=== PATIENT | female | born 1980 | race Caucasian/White ===

== ENCOUNTER 2023-01-26 17:27 | Emergency (ER) | payer OTHER ==
[2023-01-26] MEDS ORDERED: METOCLOPRAMIDE 5 MG/ML 2 ML VIAL IVP STA (20:29)
[2023-01-26] MEDS ORDERED: KETOROLAC 15 MG/ML 1 ML VIAL IVP STA (20:29)
[2023-01-26] MEDS ORDERED: DEXAMETHASONE SOD PHOSPHATE 10 MG/ML 1 ML VIAL IVP STA (20:29)
[2023-01-26] MEDS ORDERED: diphenhydrAMINE 50 MG/ML 1 ML VIAL IVP STA (20:29)
[2023-01-26] MEDS ORDERED: SODIUM CHLORIDE 0.9% 1,000 ML IV STA (20:29)
--- NOTE | 2023-01-26 20:54 | CT ---
EXAMINATION TYPE: CT brain wo con DATE OF EXAM: 01/26/2023 COMPARISON: None HISTORY: headache CT DLP: 1173.[address] of the brain was performed. The ventricles, basal cisterns and sulci overlying the cerebral convexities demonstrate a normal appe arance. There is no evidence for intracranial hemorrhage or sulcal effacement. No mass effects are seen. Osseous calvarium is intact. If symptoms persist consider MRI as clinically warranted. IMPRESSION: 1. No acute intracranial process is seen at this time.
[2023-01-26 21:08] LABS: Basophils # (A) 0.1 k/uL (0-0.2); Basophils % (A) 1 %; Eosinophils # (A) 0.2 k/uL (0-0.7); Eosinophils % (A) 2 %; HCT 33.7 % (34.0-46.0); HGB 10.8 gm/dL (11.4-16.0); Hypochromasia Moderate; Lymphocytes # (A) 2.9 k/uL (1.0-4.8); Lymphocytes % (A) 29 %; MCH 25.3 pg (25.0-35.0); MCHC 32.1 g/dL (31.0-37.0); MCV 78.7 fL (80.0-100.0); Mean Platelet Volume 7.4; Monocytes # (A) 0.6 k/uL (0-1.0); Monocytes % (A) 6 %; Neutrophils % (A) 61 %; Platelet Count 291 k/uL (150-450); RBC 4.28 m/uL (3.80-5.40); RDW 14.8 % (11.5-15.5); WBC 9.8 k/uL (3.8-10.6)
[2023-01-26 21:22] LABS: ALT 12 U/L (4-34); AST 18 U/L (14-36); African American GFR (CKD) >90 (>60 ml/min/1.73 sqM); Albumin 3.8 g/dL (3.5-5.0); Alkaline Phosphatase 73 U/L (38-126); Anion Gap 7 mmol/L; Blood Urea Nitrogen 12 mg/dL (7-17); Calcium 8.8 mg/dL (8.4-10.2); Carbon Dioxide 21 mmol/L (22-30); Chloride 107 mmol/L (98-107); Glucose 89 mg/dL (74-99); Non-African American GFR(CKD) 79 (>60 ml/min/1.73 sqM); Potassium 4.5 mmol/L (3.5-5.1); Sodium 135 mmol/L (137-145); Total Bilirubin 0.2 mg/dL (0.2-1.3); Total Protein 6.6 g/dL (6.3-8.2)
[2023-01-26 21:54] VITALS: BP 124/87; PULSE 71; RESP 17; TEMP 98.2
[2023-01-26 21:56] LABS: Erythrocyte Sedimentation Rate 12 mm/hr (0-20)
--- NOTE | 2023-01-26 21:56 | ED ---
Headache HPI - General Chief Complaint: Headache Stated Complaint: Head pressure Time Seen by Provider: 01/26/23 20:16 Mode of arrival: ambulatory Limitations: no limitations - History of Present Illness Initial Comments: Patient is a 42-year-old female presents to the emergency department for headache. This started on . Patient reports consistent pressure on the top right of her head which is worse with coughing, sneezing, bending down. States the headache is severe. She denies head injury. Denies fever, chills, nausea, vomiting, visual symptoms. Denies numbness and tingling. Denies weakness. She denies chest pain and shortness of breath. Denies history of migraines. - Related Data Previous Rx's Medication Instructions Recorded Ibuprofen [Motrin] 800 mg PO Q8HR PRN #30 tab 01/26/23 Allergies Allergy/AdvReac Type Severity Reaction Status Date / Time latex Allergy Rash/Hives Verified 01/26/23 17:33 Review of Systems ROS Statement: Those systems with pertinent positive or pertinent negative responses have been documented in the HPI. ROS Other: All systems not noted in ROS Statement are negative. Past Medical History Past Medical History: Asthma, Hypertension History of Any Multi-Drug Resistant Organisms: None Reported Past Surgical History: No Surgical Hx Reported Past Psychological History: No Psychological Hx Reported Smoking Status: Current every day smoker Past Alcohol Use History: Occasional Past Drug Use History: None Reported General Exam Limitations: no limitations General appearance: alert, in no apparent distress Head exam: Present: atraumatic, normocephalic, normal inspection Eye exam: Present: normal appearance, PERRL, EOMI. Absent: scleral icterus, conjunctival injection, periorbital swelling Respiratory exam: Present: normal lung sounds bilaterally. Absent: respiratory distress, wheezes, rales, rhonchi, stridor Cardiovascular Exam: Present: regular rate, normal rhythm, normal heart sounds. Absent: systolic murmur, diastolic murmur, rubs, gallop, clicks Neurological exam: Present: alert, oriented X3, CN II-XII intact Expanded Cranial nerves: EOM's Intact: Normal, Facial Sensation: Normal, Facial Palsy with Forehead Movement: Normal, Facial Palsy without Forehead Movement: Normal Sensory exam: Upper Extremity Light Touch: Normal, Lower Extremity Light Touch: Normal Motor strength exam: RUE: 5, LUE: 5, RLE: 5, LLE: 5 Psychiatric exam: Present: normal affect, normal mood Skin exam: Present: warm, dry, intact, normal color. Absent: rash Course Vital Signs 01/26/23 01/26/23 01/26/23 17:31 21:02 21:54 Temperature 98.1 F 98.5 F 98.2 F Pulse Rate 90 74 71 Respiratory 20 16 17 Rate Blood Pressure 125/74 121/81 124/87 O2 Sat by Pulse 99 97 96 Oximetry Medical Decision Making - Medical Decision Making Was pt. sent in by a medical professional or institution (, [facility], [employer], urgent care, hospital, or custodial...) When possible be specific @ -No Did you speak to anyone other than the patient for history (EMS, parent, family, police, friend...)? What history was obtained from this source @ -No Did you review nursing and triage notes (agree or disagree)? Why? @ -I reviewed and agree with nursing and triage notes Were old charts reviewed (outside hosp., previous admission, EMS record, old EKG, old radiological studies, urgent care reports/EKG's, custodial records)? Report findings @ -No old charts were reviewed Differential Diagnosis (chest pain, altered mental status, abdominal pain women, abdominal pain men, vaginal bleeding, weakness, fever, dyspnea, syncope, headache, dizziness, GI bleed, back pain, seizure, CVA, palpatations, mental health)? @ -Differential Headache: Migraine, tension, cluster, carbon monoxide, central venous thrombosis, pension karma temporal arteritis, acute closure glaucoma, intercranial hemorrhage, mastoiditis, sinusitis, head injury, this is not meant to be an all-inclusive list. EKG interpreted by me (3pts min.). @ -None X-rays interpreted by me (1pt min.). @ -None done CT interpreted by me (1pt min.). @ -No acute intracranial process U/S interpreted by me (1pt. min.). @ -None done What testing was considered but not performed or refused? (CT, X-rays, U/S, labs)? Why? @ -None What meds were considered but not given or refused? Why? @ -None Did you discuss the management of the patient with other professionals (professionals i.e. , PA, BUYER INTERN, lab, RT, psych nurse, social welfare clerk, wire welder, teacher, aoc operations intelligence officer, case picker)? Give summary @ -No Was smoking cessation discussed for >3mins.? @ -No Was critical care preformed (if so, how long)? @ -No Were there social determinants of health that impacted care today? How? (Ho melessness, low income, unemployed, alcoholism, drug addiction, transportation, low edu. Level, literacy, decrease access to med. care, [facility], rehab)? @ -No Was there de-escalation of care discussed even if they declined (Discuss DNR or withdrawal of care, Hospice)? DNR status @ -No] What co-morbidities impacted this encounter? (DM, HTN, Smoking, COPD, CAD, Cancer, CVA, ARF, Chemo, Hep., AIDS, mental health diagnosis, sleep apnea, morbid obesity)? @ -[None] Was patient admitted / discharged? Hospital course, mention meds given and route, prescriptions, significant lab abnormalities, going to OR and other pertinent info. @Patient presenting with headache. Due to severity and duration of headache CT of the brain was obtained and interpreted myself/radiology which is negative for acute intracranial process. Labs unremarkable patient given headache cocktail with significant improvement of symptoms. No neurological deficit on exam patient is in stable medical condition for discharge. She is to follow-up with primary care provider Undiagnosed new problem with uncertain prognosis? @ -[No] Drug Therapy requiring intensive monitoring for toxicity (Heparin, Nitro, Insulin, Cardizem)? @ -[No] Were any procedures done? @ -[No] Diagnosis/symptom? @ -headache Acute, or Chronic, or Acute on Chronic? @ -acute Uncomplicated (without systemic symptoms) or Complicated (systemic symptoms)? @ -uncomplicated Side effects of treatment? @ -[No] Exacerbation, Progression, or Severe Exacerbation? @ -[No] Poses a threat to life or bodily function? How? (Chest pain, [place], [place], pneumonia, PE, COPD, DKA, ARF, appy, cholecystitis, CVA, Diverticulitis, Homicidal, Suicidal, threat to staff... and all critical care pts) @ -No Dr. Wong is my attending - Lab Data Result diagrams: 01/26/23 20:52 01/26/23 20:52 Lab Results 01/26/23 01/26/23 01/26/23 Range/Units 20:52 20:52 20:52 WBC 9.8 (3.8-10.6) k/uL RBC 4.28 (3.80-5.40) m/uL Hgb 10.8 L (11.4-16.0) gm/dL Hct 33.7 L (34.0-46.0) % MCV 78.7 L (80.0-100.0) fL MCH 25.3 (25.0-35.0) pg MCHC 32.1 (31.0-37.0) g/dL RDW 14.8 (11.5-15.5) % Plt Count 291 (150-450) k/uL MPV 7.4 Neutrophils % 61 % Lymphocytes % 29 % Monocytes % 6 % Eosinophils % 2 % Basophils % 1 % Neutrophils # 6.0 (1.3-7.7) k/uL Lymphocytes # 2.9 (1.0-4.8) k/uL Monocytes # 0.6 (0-1.0) k/uL Eosinophils # 0.2 (0-0.7) k/uL Basophils # 0.1 (0-0.2) k/uL Hypochromasia Moderate ESR 12 (0-20) mm/hr Sodium 135 L (137-145) mmol/L Potassium 4.5 (3.5-5.1) mmol/L Chloride 107 (98-107) mmol/L Carbon Dioxide 21 L (22-30) mmol/L Anion Gap 7 mmol/L BUN 12 (7-17) mg/dL Creatinine 0.91 (0.52-1.04) mg/dL Est GFR (CKD-EPI)AfAm >90 (>60 ml/min/1.73 sqM) Est GFR (CKD-EPI)NonAf 79 (>60 ml/min/1.73 sqM) Glucose 89 (74-99) mg/dL Calcium 8.8 (8.4-10.2) mg/dL Total Bilirubin 0.2 (0.2-1.3) mg/dL AST 18 (14-36) U/L ALT 12 (4-34) U/L Alkaline Phosphatase 73 (38-126) U/L C-Reactive Protein 1.0 H (<1.0) mg/dL Total Protein 6.6 (6.3-8.2) g/dL Albumin 3.8 (3.5-5.0) g/dL Influenza Type A (PCR) Not Detected (Not Detectd) Influenza Type B (PCR) Not Detected (Not Detectd) RSV (PCR) Not Detected (Not Detectd) SARS-CoV-2 (PCR) Not Detected (Not Detectd) Disposition Clinical Impression: Headache, Anemia Disposition: HOME SELF-CARE Condition: Good Instructions (If sedation given, give patient instructions): Acute Headache (ED), Anemia (ED) Additional Instructions: Follow-up with primary care provider in one to 2 days. Return to the emergency department if you experience new, concerning, or worsening symptoms. Prescriptions: Ibuprofen [Motrin] 800 mg PO Q8HR PRN #30 tab PRN Reason: Pain Is patient prescribed a controlled substance at d/c from ED?: No Referrals: Nonstaff,Physician [Primary Care Provider] - 1-2 days
== END 2023-01-26 22:05 | disposition home or self-care (01) ==
LOC: EC 17:27
DX: D64.9 Anemia, unspecified (principal); R51.9 Headache, unspecified; J45.909 Unspecified asthma, uncomplicated; I10 Essential (primary) hypertension; F17.200 Nicotine dependence, unspecified, uncomplicated; Z91.040 Latex allergy status; Z20.822 Contact with and (suspected) exposure to COVID-19
CPT/HCPCS: 36415; 80053; 85652; 85025; 86140; 87636; 70450; 99284; 96374; 96375 ×3; 96361; J1200; J1100; J2765; J1885

== ENCOUNTER 2024-03-27 14:05 | Observation (INO) | payer OTHER ==
--- NOTE | 2024-03-27 14:32 | ED ---
Chest Pain HPI - General Source: patient, RN notes reviewed Mode of arrival: wheelchair Limitations: no limitations <Yessy Hui - Last Filed: 03/27/24 14:32> <Michael Reyes - Last Filed: 03/27/24 18:11> - General Chief Complaint: Chest Pain Stated Complaint: chest pain Time Seen by Provider: 03/27/24 14:30 - History of Present Illness Initial Comments: Quick [id number]-old female presenting with chest pain x 1 hour with associated shortness of breath and left arm numbness. States the pain is substernal and radiates to the back. Patient states she had similar symptoms 1 week ago however was not seen for this at the time. Denies any cardiac or pulmonary history. Denies blood thinners. (Yessy Hui) Dictation was produced using [employer] dictation software. please excuse any grammatical, word or spelling errors. Chief Complaint: 44-year-old female with sharp chest pain History of Present Illness: Patient is a 44-year-old female she has past medical history of asthma and hypertension states that she has sharp substernal chest pain that radiates to her back. States that it is severe and acute. Patient denies any numbness in her legs. She states that it does feel like it is rating into the arm. Denies any weakness. Patient denies any history of hypertension. The ROS documented in this emergency department record has been reviewed and confirmed by me. Those systems with pertinent positive or negative responses have been documented in the HPI. All other systems are other negative and/or noncontributory. (Michael Reyes) - Related Data Home Medications Medication Instructions Recorded Confirmed Ferrous Sulfate [Feosol] 325 mg PO Q2D 03/27/24 03/27/24 Ondansetron Odt [Zofran Odt] 4 mg PO Q6H PRN 03/27/24 03/27/24 levonorgestreL [Mirena] 1 implant IY [id number] 03/27/24 03/27/24 methocarbamoL [Robaxin] 1,000 mg PO QID PRN 03/27/24 03/27/24 Allergies Allergy/AdvReac Type Severity Reaction Status Date / Time latex Allergy Rash/Hives/ Verified 03/27/24 16:56 Swelling Review of Systems ROS Other: All systems not noted in ROS Statement are negative. <Yessy Hui - Last Filed: 03/27/24 14:32> ROS Other: All systems not noted in ROS Statement are negative. <Michael Reyes - Last Filed: 03/27/24 18:11> ROS Statement: Those systems with pertinent positive or pertinent negative responses have been documented in the HPI. Past Medical History Past Medical History: Asthma, Hypertension History of Any Multi-Drug Resistant Organisms: None Reported Past Surgical History: No Surgical Hx Reported Past Psychological History: No Psychological Hx Reported Smoking Status: Current every day smoker Past Alcohol Use History: Occasional Past Drug Use History: None Reported <Yessy Hui - Last Filed: 03/27/24 14:32> General Exam Limitations: no limitations <Deanna Huina - Last Filed: 03/27/24 14:32> <Michael Reyes - Last Filed: 03/27/24 18:11> - General Exam Comments Initial Comments: Visual Physical Exam Vital signs reviewed General: Anxious, mild acute distress. Head: Normocephalic, atraumatic Eyes: PERRLA, EOMI ENT: Airway patent Chest: Nonlabored breathing Skin: No visual rash, normal skin tone Neuro: Alert and oriented 3 Musculoskeletal: No gross abnormalities (EzYessy) PHYSICAL EXAM: General Impression: Alert and oriented x3, distressed HEENT: Normocephalic atraumatic, extra-ocular movements intact, pupils equal and reactive to light bilaterally, mucous membranes moist. Cardiovascular: Heart regular rate and rhythm Chest: Able to complete full sentences, no retractions, no tachypnea Abdomen: abdomen soft, non-tender, non-distended, no organomegaly Musculoskeletal: Pulses present and equal in all extremities, no peripheral edema Motor: no focal deficits noted Neurological: CN II-XII grossly intact, no focal motor or sensory deficits noted Skin: Intact with no visualized rashes Psych: Normal affect and mood (Michael Reyes) Course Vital Signs 03/27/24 03/27/24 03/27/24 14:06 15:07 15:58 Temperature 97.8 F Pulse Rate 110 H 81 Pulse Rate [ 73 Plasma Processor ] Respiratory 30 H 24 Rate Blood Pressure 161/86 109/77 O2 Sat by Pulse 99 Oximetry 03/27/24 03/27/24 17:00 17:41 Temperature Pulse Rate 77 78 Pulse Rate [ Plasma Processor ] Respiratory 22 18 Rate Blood Pressure 115/74 119/78 O2 Sat by Pulse 97 Oximetry Chest Pain MDM <Yessy Hui - Last Filed: 03/27/24 14:32> <AmyMichael Jaret - Last Filed: 03/27/24 18:11> - MDM I completed the quick note portion of this chart signed Yessy Hui PA-C (Yessy Hui) My EKG interpretation: Ventricular rate 82, sinus rhythm,. 159, QRS 82, QTc 380. No IN prolongation, no QTC prolongation, no ST or T-wave changes noted. Overall, this EKG is unremarkable Was pt. sent in by a medical professional or institution ([facility], [facility] [employer] [facility], urgent care, hospital, or penitentiary...) When possible be specific @ -No Did you speak to anyone other than the patient for history (EMS, parent, family, police, friend...)? What history was obtained from this source @ -No Did you review nursing and triage notes (agree or disagree)? Why? @ -I reviewed and agree with nursing and triage notes Were old charts reviewed (outside hosp., previous admission, EMS record, old EKG, old radiological studies, urgent care reports/EKG's, penitentiary records)? Report findings @ -No old charts were reviewed Differential Diagnosis (chest pain, altered mental status, abdominal pain women, abdominal pain men, vaginal bleeding, musculoskeletal, weakness, fever, dyspnea, syncope, headache, dizziness, GI bleed, back pain, seizure, CVA, palpatations, mental health)? @ -Differential Chest Pain: Stable Angina, Unstable Angina, STEMI, NSTEMI Aortic Dissection, Pneumothorax, Musculoskeletal, Esophageal Spasm GERD, Cholecystitis, Pancreatitis, Zoster, this is not meant to be an all-inclusive list. EKG interpreted by me (3pts min.). @ -See above X-rays interpreted by me (1pt min.). @ -None done CT interpreted by me (1pt min.). @ -CT angio shows no aortic dissection U/S interpreted by me (1pt. min.). @ -None done What testing was considered but not performed or refused? (CT, X-rays, U/S, labs)? Why? @ -None What meds were considered but not given or refused? Why? @ -None Was smoking cessation discussed for >3mins.? @ -No Were there social determinants of health that impacted care today? How? (Homelessness, low income, unemployed, alcoholism, drug addiction, transportation, low edu. Level, literacy, decrease access to med. care, correction, rehab)? @ -No Was there de-escalation of care discussed even if they declined (Discuss DNR or withdrawal of care, Hospice)? DNR status @ -No What co-morbidities impacted this encounter? (DM, HTN, Smoking, COPD, CAD, Cancer, CVA, ARF, Chemo, Hep., AIDS, mental health diagnosis, sleep apnea, morbid obesity)? @ -None Was patient admitted / discharged? Hospital course, mention meds given and route, prescriptions, significant lab abnormalities, going to OR and other pertinent info. @ -24-year-old female presents emergency department with chest pain. Clinical presentation concerning for acute aortic dissection. Patient sent rapidly to CT for angiography. Angiography shows no dissection. Laboratory evaluation obtained. Labs are unremarkable. Troponin is negative. Patient given Dilaudid along with GI cocktail which dramatically improved her symptoms. Disposition options were discussed she is agreeable for observation admission with consultation to cardiology. Did you discuss the management of the patient with other professionals (professionals i.e. , PA, BLACK TOP ROLLER, lab, RT, psych nurse, manager social media, divorce lawyer, teacher, inshore undersea warfare officer, caseworker protective services)? Give summary @ -Case discussed with hospitalist for admission Was critical care preformed (if so, how long)? @ -Yes, 33 minutes Undiagnosed new problem with uncertain prognosis? @ -No Drug Therapy requiring intensive monitoring for toxicity (Heparin, Nitro, Insulin, Cardizem)? @ -No Were any procedures done? @ -No Diagnosis/symptom? Acute, or Chronic, or Acute on Chronic? Uncomplicated (without systemic symptoms) or Complicated (systemic symptoms)? @ -Chest pain Side effects of treatment? @ -No Exacerbation, Progression, or Severe Exacerbation? @ -No Poses a threat to life or bodily function? How? (Chest pain, [place], [place], pneumonia, PE, COPD, DKA, ARF, appy, cholecystitis, CVA, Diverticulitis, Homicidal, Suicidal, threat to staff... and all critical care pts) @ -yes (Michael Reyes) Disposition <Yessy Hui - Last Filed: 03/27/24 14:32> Decision Time: 18:11 <Michael Reyes - Last Filed: 03/27/24 18:11> Clinical Impression: Chest pain Disposition: ADMITTED IP TO THIS HOSP Condition: Fair Referrals: Nonstaff,Physician [Primary Care Provider] - 1-2 days
--- NOTE | 2024-03-27 14:55 | XR ---
EXAMINATION TYPE: XR chest 2V DATE OF EXAM: 03/27/2024 2:50 PM CLINICAL INDICATION: Female, 44 years old with history of chest pain; COMPARISON: None TECHNIQUE: XR chest 2V Frontal view of the chest. FINDINGS: Lungs/Pleura: There is no evidence of pleural effusion, focal consolidation, or pneumothorax. Pulmonary vascularity: Unremarkable. Heart/mediastinum: Cardiomediastinal silhouette is unremarkable. Musculoskeletal: No acute osseous pathology. IMPRESSION: No acute cardiopulmonary disease/process.
[2024-03-27 15:02] LABS: Basophils # (A) 0.1 k/uL (0-0.2); Basophils % (A) 1 %; Eosinophils # (A) 0.3 k/uL (0-0.7); Eosinophils % (A) 3 %; HCT 43.2 % (34.0-46.0); HGB 14.7 gm/dL (11.4-16.0); Lymphocytes # (A) 3.6 k/uL (1.0-4.8); Lymphocytes % (A) 33 %; MCH 30.5 pg (25.0-35.0); MCHC 34.1 g/dL (31.0-37.0); MCV 89.4 fL (80.0-100.0); Monocytes # (A) 0.6 k/uL (0-1.0); Monocytes % (A) 6 %; Neutrophils # (A) 6.2 k/uL (1.3-7.7); Neutrophils % (A) 56 %; Platelet Count 235 k/uL (150-450); RBC 4.84 m/uL (3.80-5.40); RDW 12.7 % (11.5-15.5); WBC 10.9 k/uL (3.8-10.6)
[2024-03-27 15:06] LABS: INR 0.9 (<1.2); Partial Thromboplastin Time 26.9 sec (22.0-30.0); Prothrombin Time 10.2 sec (10.0-12.5)
[2024-03-27 15:11] LABS: ALT 12 U/L (4-34); AST 16 U/L (14-36); African American GFR (CKD) >90 (>60 ml/min/1.73 sqM); Albumin 4.2 g/dL (3.5-5.0); Alkaline Phosphatase 84 U/L (38-126); Anion Gap 12 mmol/L; Blood Urea Nitrogen 9 mg/dL (7-17); Calcium 9.7 mg/dL (8.4-10.2); Carbon Dioxide 19 mmol/L (22-30); Chloride 107 mmol/L (98-107); Glucose 113 mg/dL (74-99); Magnesium 1.7 mg/dL (1.6-2.3); Non-African American GFR(CKD) >90 (>60 ml/min/1.73 sqM); Potassium 3.8 mmol/L (3.5-5.1); Sodium 138 mmol/L (137-145); Total Bilirubin 0.4 mg/dL (0.2-1.3); Total Protein 6.6 g/dL (6.3-8.2)
[2024-03-27] MEDS: SODIUM CHLORIDE 0.9% 1,000 ML IV STA (15:53)
[2024-03-27] MEDS: MORPHINE SULFATE 4 MG/ML SYRINGE IV STA (15:54)
--- NOTE | 2024-03-27 16:08 | CT ---
EXAMINATION TYPE: CT angio thor/abd pel aorta DATE OF EXAM: 03/27/2024 INDICATION: Substernal chest pain radiating to back starting at 1330. SOB,. L arm numbness. COMPARISON: None CT DLP: 1663.1 mGycm CONTRAST: Performed without Oral Contrast and with IV Contrast, patient injected with 100 ml mL of Isovue 370. TECHNIQUE: Axial images at 5 mm thick sections. Reconstructed images in the coronal plane. Delayed images through the kidneys. FINDINGS: CT CHEST: Portion of the thyroid visualized is normal. No suspicious lung nodules or focal infiltrates are present. No enlarged mediastinal or hilar adenopathy is evident. The ascending aorta diameter at the level of the main pulmonary artery is 3.6 cm. The main pulmonary artery diameter at the bifurcation is 3.[address] ABDOMEN: Liver: Normal Spleen: Normal Pancreas: Normal Adrenal glands: The adrenal glands are normal. Gallbladder: Gallstone present and no pericholecystic fluid or gallbladder wall thickening evident Kidneys: No masses are evident. No hydronephrosis is present. No cysts are present. No Renal stones evident Aorta: Vascular calcification is within the aorta. Aortic root measures 3.1 cm Ascending thoracic ao rta at the main pulmonary artery is 3.5 cm. Transverse dimension of the aortic arch is 2.7 cm. Aorta at the diaphragm measures 2.3 cm. Aorta tapers to the abdomen. Internal and external iliac arteries a re patent. Common iliac arteries are normal. Common femoral arteries are unremarkable. Profunda femor is proximal superficial femoral arteries are unremarkable. No dissection is evident. No aneurysmal d ilatation. Inferior vena cava: Normal. CT PELVIS: Loops of bowel within the abdomen and pelvis are normal. This study without oral contrast limitin g bowel evaluation Appendix: Normal as visualized. Urinary bladder: Normal. Genitourinary structures: Uterus contains an IUD. Cysts are present in the right ovary measuring 3.6 and 2.5 cm. Small cysts ovary measuring 1.5 cm Osseous structures: No suspicious lytic or sclerotic lesions IMPRESSION: 1. No aneurysmal dilatation of the thoracic or abdominal aorta. Mild fusiform prominence of the desce nding thoracic aorta is present. 2. Cholelithiasis. 3. Bilateral ovarian cysts
[2024-03-27] MEDS: MAG HYDROX/AL HYDROX/SIMETH 30 ML, HYOSCYAMINE ELIXIR 10 ML, LIDOCAINE VISCOUS 2% 10 ML PO STA (17:34)
[2024-03-27] MEDS: NITROGLYCERIN SL TABS 0.4 MG TAB SUBLINGUAL STA (17:36)
[2024-03-27] MEDS: HYDROmorphone 1 MG/ML 1 ML SYRINGE IVP STA (17:37)
[2024-03-27] MEDS ORDERED: NITROGLYCERIN SL TABS 0.4 MG TAB SUBLINGUAL PRN (18:06)
[2024-03-27] MEDS: ASPIRIN 81 MG PO STA (18:26)
[2024-03-28] MEDS ORDERED: ASPIRIN 325 MG TAB PO SCH (09:00)
--- NOTE | 2024-03-28 09:03 | P.CRDCN ---
History of Present Illness History of present illness: HISTORY OF PRESENT ILLNESS: This is a 44-year-old female with a past medical history significant for asthma, hypertension, and nicotine dependence. Patient does not follow with a cardiolo gist. We have been asked to see the patient in consultation for chest pain. Patient examined at the bedside. Patient states yesterday while sitting in her kitchen she began to have chest discomfort. She states it was a sharp pain that radiated into her back. She states that the pain got worse she did start to feel short of breath. She states the pain was worse with deep inspiration. She denies any nausea or vomiting. Denies any diaphoresis. She states the pain has since resolved and has not had any further episodes of chest pain since being in the hospital. She is a current cigarette smoker and smokes less than half a pack per day. She reports occasional alcohol use. Denies any drug use. She states her dad has a history of atrial fibrillation hypertension but no CAD. DIAGNOSTICS: - EKG reveals sinus mechanism with no signs of acute ischemia. - Chest xray negative for acute process - Laboratory data: WBC 10.9. Hemoglobin 14.9. Platelet count 235. Sodium 138. Potassium 3.8. BUN 9. Creatinine 0.79. Troponin negative x 3. - Current home cardiac medications include none -No previous echocardiogram, stress test, or cardiac catheterization available in EMR for review REVIEW OF SYSTEMS: At the time of my exam: CONSTITUTIONAL: Denies fever or chills. HEENT: Denies blurred vision, vision changes, or eye pain. Denies hemoptysis CARDIOVASCULAR: Denies chest pain. Denies orthopnea. Denies PND. Denies palpitations RESPIRATORY: Denies shortness of breath. GASTROINTESTINAL: Denies abdominal pain. Denies nausea or vomiting. HEMATOLOGIC: Denies bleeding disorders. GENITOURINARY: Denies any blood in urine. SKIN: Denies pruitis. Denies rash. PHYSICAL EXAM: VITAL SIGNS: Reviewed. GENERAL: Well-developed in no acute distress. HEENT: Head is normocephalic. Pupils are equal, round. Sclerae anicteric. Mucous membranes of the mouth are moist. Neck supple. No JVD or thyromegaly LUNGS: Respirations even and unlabored. Lungs essentially clear to auscultation bilaterally. HEART: Regular rate and rhythm. S1 and S2 heard. ABDOMEN: Soft. Nondistended. Nontender. EXTREMITIES: Normal range of motion. No clubbing or cyanosis. Peripheral pulses intact. No lower extremity edema NEUROLOGIC: Awake and alert. Oriented x 3. ASSESSMENT: Chest pain, troponin negative x 3 History of hypertension, not requiring medications History of asthma Nicotine dependence Obesity: BMI 32.3 PLAN: An acute coronary event has been ruled out Obtain 2D echo to assess cardiac structure and function Decrease aspirin to 81 mg daily Smoking cessation recommended Patient to undergo stress echocardiogram today If negative, she may be discharged home from a cardiac standpoint Nurse practitioner note has been reviewed by physician. Signing provider agrees with the documented findings, assessment, and plan of care documented by PERSONAL CHEF as a scribe. Past Medical History Past Medical History: Asthma Additional Past Medical History / Comment(s): preeclampsia History of Any Multi-Drug Resistant Organisms: None Reported Past Surgical History: No Surgical Hx Reported Past Anesthesia/Blood Transfusion Reactions: No Reported Reaction Past Psychological History: No Psychological Hx Reported Smoking Status: Former smoker Past Alcohol Use History: Occasional Past Drug Use History: None Reported Medications and Allergies Home Medications Medication Instructions Recorded Confirmed Type Ferrous Sulfate [Feosol] 325 mg PO Q2D 03/27/24 03/27/24 History Ondansetron Odt [Zofran Odt] 4 mg PO Q6H PRN 03/27/24 03/27/24 History levonorgestreL [Mirena] 1 implant IY [id number] 03/27/24 03/27/24 History methocarbamoL [Robaxin] 1,000 mg PO QID PRN 03/27/24 03/27/24 History Allergies Allergy/AdvReac Type Severity Reaction Status Date / Time latex Allergy Rash/Hives/ Verified 03/27/24 16:56 Swelling Physical Exam Vitals: Vital Signs Temp Pulse Pulse Resp BP Pulse Ox 03/28/24 06:58 67 16 109/75 95 03/28/24 05:43 60 16 107/69 94 L 03/28/24 04:00 68 16 103/58 95 03/28/24 02:16 60 18 103/62 95 03/28/24 01:00 55 L 18 98/51 94 L 03/27/24 23:00 66 16 100/62 95 03/27/24 22:00 65 16 114/50 95 03/27/24 21:05 63 16 106/68 96 03/27/24 18:26 97.9 F 66 18 121/71 98 03/27/24 17:41 78 18 119/78 03/27/24 17:00 77 22 115/74 97 03/27/24 15:58 81 24 109/77 03/27/24 15:07 73 03/27/24 14:06 97.8 F 110 H 30 H 161/86 99 Intake and Output 03/27/24 03/28/24 03/28/24 22:59 06:59 14:59 Other: Weight 90.718 kg Results 03/27/24 14:43 03/27/24 14:43 Cardiac Enzymes 03/27/24 03/27/24 03/27/24 Range/Units 14:43 14:43 19:21 AST 16 (14-36) U/L Troponin I <0.012 <0.012 (0.000-0.034) ng/mL 03/27/24 Range/Units 22:16 AST (14-36) U/L Troponin I <0.012 (0.000-0.034) ng/mL Coagulation 03/27/24 Range/Units 14:43 PT 10.2 (10.0-12.5) sec APTT 26.9 (22.0-30.0) sec CBC 03/27/24 Range/Units 14:43 WBC 10.9 H (3.8-10.6) k/uL RBC 4.84 (3.80-5.40) m/uL Hgb 14.7 (11.4-16.0) gm/dL Hct 43.2 (34.0-46.0) % Plt Count 235 (150-450) k/uL Comprehensive Metabolic Panel 03/27/24 Range/Units 14:43 Sodium 138 (137-145) mmol/L Potassium 3.8 (3.5-5.1) mmol/L Chloride 107 (98-107) mmol/L Carbon Dioxide 19 L (22-30) mmol/L BUN 9 (7-17) mg/dL Creatinine 0.79 (0.52-1.04) mg/dL Glucose 113 H (74-99) mg/dL Calcium 9.7 (8.4-10.2) mg/dL AST 16 (14-36) U/L ALT 12 (4-34) U/L Alkaline Phosphatase 84 (38-126) U/L Total Protein 6.6 (6.3-8.2) g/dL Albumin 4.2 (3.5-5.0) g/dL Current Medications Generic Name Dose Route Start Last Admin Trade Name Freq PRN Reason Stop Dose Admin Aspirin 325 mg 03/28/24 09:00 Aspirin 325 Mg Tab PO DAILY CARLOS MANUEL Nitroglycerin 0.4 mg 03/27/24 18:06 Nitroglycerin Sl Tabs 0.4 Mg Tab SUBLINGUAL Q5M PRN Chest Pain Intake and Output 03/27/24 03/28/24 03/28/24 22:59 06:59 14:59 Other: Weight 90.718 kg 03/27/24 14:43 03/27/24 14:43
[2024-03-28 09:29] LABS: Chol/HDL Ratio 4.65 Ratio; LDL Cholesterol,Calculated 71.7 mg/dL (0.0-131.0)
[2024-03-28] MEDS: ASPIRIN 81 MG PO SCH (09:34)
[2024-03-28 09:40] VITALS: TEMP 97.5
[2024-03-28] MEDS ORDERED: ONDANSETRON ODT 4 MG TAB PO PRN (10:13)
[2024-03-28] MEDS ORDERED: methocarbamoL 500 MG TAB PO PRN (10:13)
[2024-03-28 11:17] VITALS: RESP 16
--- NOTE | 2024-03-28 12:20 | CA ---
Transthoracic Echo Report Name: Charis Draper Age: 44 Gender: F : 1980 Exam Date: 03/28/2024 09:07 Exam Location: [facility] Ht (in): 66 Wt (lb): 200 Ordering Physician: Aleena Gooden Attending/Referring Phys: [id number], Berkley Locomotive Oiler Darby Amezcua RDCS Procedure CPT: Indications: LV function Cardiac Hx: Technical Quality: Good Contrast 1: Total Dose (mL): Contrast 2: Total Dose (mL): MEASUREMENTS (Male / Female) Normal Values 2D ECHO LV Diastolic Diameter PLAX 4.6 cm 4.2 - 5.9 / 3.9 - 5.3 cm LV Systolic Diameter PLAX 3.0 cm IVS Diastolic Thickness 1.0 cm 0.6 - 1.0 / 0.6 - 0.9 cm LVPW Diastolic Thickness 1.4 cm 0.6 - 1.0 / 0.6 - 0.9 cm LV Relative Wall Thickness 0.5 RV Internal Dim ED PLAX 2.6 cm LA Systolic Diameter LX 4.2 cm 3.0 - 4.0 / 2.7 - 3.8 cm LV Diastolic Volume MOD BP 67.5 cm??? 67 - 155 / 56 - 104 cm??? LV Systolic Volume MOD BP 24.4 cm??? 22 - 58 / 19 - 49 cm??? LV Ejection Fraction MOD BP 63.9 % >= 55 % LV Cardiac Index MOD BP 1425.0 cm???/min???m??? LV Diastolic Volume MOD 4C 81.1 cm??? LV Systolic Volume MOD 4C 26.1 cm??? LV Ejection Fraction MOD 4C 67.8 % LV Cardiac Index MOD 4C 1816.7 cm???/min???m??? LV Diastolic Length 4C 7.0 cm LV Systolic Length 4C 6.2 cm LV Diastolic Volume MOD 2C 57.3 cm??? LV Systolic Volume MOD 2C 20.1 cm??? LV Ejection Fraction MOD 2C 65.0 % LV Cardiac Index MOD 2C 1231.0 cm???/min???m??? LV Diastolic Length 2C 7.0 cm LV Systolic Length 2C 5.4 cm LA Volume 66.5 cm??? 18 - 58 / 22 - 52 cm??? LA Volume Index 31.8 cm???/m??? 16 - 28 cm???/m??? M-MODE Aortic Root Diameter MM 2.8 cm LA Systolic Diameter MM 3.4 cm LA Ao Ratio MM 1.2 AV Cusp Separation MM 2.0 cm DOPPLER MV Area PHT 2.6 cm??? Mitral E Point Velocity 96.7 cm/s Mitral A Point Velocity 97.2 cm/s Mitral E to A Ratio 1.0 MV Deceleration Time 290.9 ms TR Peak Velocity 211.0 cm/s TR Peak Gradient 17.8 mmHg Right Ventricular Systolic Press 22.0 mmHg FINDINGS Left Ventricle Left ventricular ejection fraction is estimated at 55-60%. Mildly increased septal wall thickness. Left ventricular cavity size normal. No obvious regional wall motion abnormalities. Right Ventricle Normal right ventricular size and function. Right ventricular systolic pressure within normal limits. Right Atrium Normal right atrial size. Left Atrium Mildly increased left atrial diameter. Mildly increased left atrial volume. Mildly increased left atrial area. Mitral Valve Structurally normal mitral valve. Mild mitral regurgitation. No mitral stenosis. Aortic Valve Trileaflet aortic valve. No aortic stenosis. No aortic regurgitation. Tricuspid Valve Structurally normal tricuspid valve. Mild tricuspid regurgitation. Pulmonic Valve Structurally normal pulmonic valve. Trace pulmonic regurgitation. No pulmonic stenosis. Pericardium No pericardial or pleural effusion. Aorta Normal size aortic root and proximal ascending aorta. CONCLUSIONS Left ventricular ejection fraction 55-60% Mildly increased left ventricular wall thickness RVSP 22 Mildly dilated left atrium Mild mitral regurgitation Mild tricuspid regurgitation Previewed by: Dr. Arpit Cantrell DO (Electronically Signed) Final Date: 28 March 2024 12:19
--- NOTE | 2024-03-28 12:23 | CA ---
Stress Echo Report Charis Draper Age: 44 Gender: F : 1980 Exam Date: 03/28/2024 08:46 Exam Location: [facility] Ht (in): 66 Wt (lb): 200 Ordering Physician: Aleena Gooden Referring Physician: [id number] Divorce Attorney: Eddi Najera Technologist Procedure CPT: Indication: CP ICD-9 Codes: Rhythm: Patient History: Cardiac Medications: SEE CHART Medications in past 24 hours: Contrast: N/A Stress Results Protocol: Louie Total dose(mL): NA Exercise Duration (min:sec): 6:[address] Depression (mm): Angina Score: Levin Score: METS: 7.5 Resting HR: 76 Resting BP: 120 / 76 Peak HR: 140 Peak BP: 160 / 80 Max Predicted HR: 178 79 % Max Predicted HR Target HR: 151 Double Product: [id number] Stress Summary: BP Response: Reason for Termination: Maximal effort/unable to continue Cardiac Symptoms: DYSPNEA ECG Analysis Resting ECG: Stress ECG: Arrhythmia: Echo Analysis Resting Echo: Peak Echo Analysis: MEASUREMENTS (Male/Female) Normal Values CONCLUSIONS Patient underwent exercise stress echo with a Louie protocol treadmill stress test. Patient exercised into Stage 2 for a total of 6 minutes and 24 seconds reaching a total of 7.5 METS. Patient's maximum heart rate was 140 which represented 78% age- predicted maximum heart rate. Stress EKG portion: At baseline patient's EKG showed normal sinus rhythm, normal axis, no significant ST or T wave abnormalities. At peak exercise, EKG showed no significant change from baseline. Stress echo portion: 2-D echocardiogram was performed in the parasternal long, personal short, apical 2 and apical four-chamber views at rest, peak exercise and in recovery. At baseline, echocardiogram showed left ventricular ejection fraction 55% without wall motion abnormalities. With peak exercise, echocardiogram shows improvement in left ventricular ejection fraction, increase contractility, decrease in left ventricular end systolic dimension without wall motion abnormalities consistent with a normal response to exercise. Conclusions: 1. Technically inadequate stress test given inability to reach 85% maximum predicted heart rate 2. However at 78% age predicted heart rate, normal EKG and echo response to exercise without evidence of inducible ischemia. 3. Fair exercise capacity. Dr. Arpit Cantrell DO (Electronically Signed) Final Date: 28 March 2024 12:22
--- NOTE | 2024-03-28 14:20 | P.HPIM ---
History of Present Illness H&P Date: 03/28/24 This is a 44 year old female with medical history of asthma, hypertension, iron deficiency anemia and current smoker. Patient was sitting at the table at home developed sharp mid sternal chest pain with radiation to the back and came in to the hospital for evaluation. She had no palpitations, dizziness or lightheadedness. Patient had no shortness of breath. Not a burning like sensation any not associated with foods. Patient was admitted and cardiac evaluation underwent stress echo. Was inadequate study patient had inability. 85% maximum predicted heart rate however at 78% age-predicted heart rate patient had normal EKG and echo response without evidence of inducible ischemia with fair exercise capacity. Patient's echocardiogram reveals an EF of 55 to 60% with mild TR, mild MR and mildly increased left ventricular wall thickness. Patient is not having any chest pain at this time. Advised patient to quit smoking. Troponin level is negative x 3, Lipid panel shows triglycerides of 144, cholesterol of 128, HDL of 27.50, LDL of 28.80. REVIEW OF SYSTEMS: CONSTITUTIONAL: No fever, no malaise, no fatigue. HEENT: No recent visual problems or hearing problems. Denied any sore throat. CARDIOVASCULAR: No chest pain, orthopnea, PND, no palpitations, no syncope. PULMONARY: No shortness of breath, no cough, no hemoptysis. GASTROINTESTINAL: No diarrhea, no nausea, no vomiting, no abdominal pain. NEUROLOGICAL: No headaches, no weakness, no numbness. HEMATOLOGICAL: Denies any bleeding or petechiae. GENITOURINARY: Denies any burning micturition, frequency, or urgency. MUSCULOSKELETAL/RHEUMATOLOGICAL: Denies any joint pain, swelling, or any muscle pain. ENDOCRINE: Denies any polyuria or polydipsia. The rest of the 14-point review of systems is negative. PHYSICAL EXAMINATION: GENERAL: The patient is alert and oriented x3, not in any acute distress. Well developed, well nourished. HEENT: Pupils are round and equally reacting to light. EOMI. No scleral icterus. No conjunctival pallor. Normocephalic, atraumatic. No pharyngeal erythema. No thyromegaly. CARDIOVASCULAR: S1 and S2 present. No murmurs, rubs, or gallops. PULMONARY: Chest is clear to auscultation, no wheezing or crackles. ABDOMEN: Soft, nontender, nondistended, normoactive bowel sounds. No palpable organomegaly. MUSCULOSKELETAL: No joint swelling or deformity. EXTREMITIES: No cyanosis, clubbing, or pedal edema. NEUROLOGICAL: Gross neurological examination did not reveal any focal deficits. SKIN: No rashes. Assessment Acute chest pain, atypical, ACS ruled out. Hypertension in the past. Currently normotensive not on any medications outpatient Hx of asthma Iron deficiency anemia Chronic nicotine use GI prophylaxis Plan Cardiology cleared the patient for discharge negative stress echo Hydrocortisone ointment to the chest wall for the irritation from the electrode pads. Continue all same home medications Follow up cardiology. The impression and plan of care has been dictated by Anastacia Astorga Nurse Practitioner as directed. Dr. Winter MD I have performed a history and physical examination and medical decision making of this patient, discussed the same with the dictator, and agree with the dictators assessment and plan as written, documented as a scribe. Based on total visit time, I have performed more than 50% of this visit. Past Medical History Past Medical History: Asthma Additional Past Medical History / Comment(s): preeclampsia History of Any Multi-Drug Resistant Organisms: None Reported Past Surgical History: No Surgical Hx Reported Past Anesthesia/Blood Transfusion Reactions: No Reported Reaction Past Psychological History: No Psychological Hx Reported Smoking Status: Former smoker Past Alcohol Use History: Occasional Past Drug Use History: None Reported Medications and Allergies Home Medications Medication Instructions Recorded Confirmed Type Ondansetron Odt [Zofran ODT] 4 mg PO Q6H PRN 03/27/24 03/27/24 History levonorgestreL [Mirena] 1 implant IY [id number] 03/27/24 03/27/24 History methocarbamoL [Robaxin] 1,000 mg PO QID PRN 03/27/24 03/27/24 History Aspirin 81 mg PO DAILY #30 tab 03/28/24 Rx Ferrous Sulfate [Iron (65 MG 325 mg PO Q2D #30 tab 03/28/24 Rx Elemental)] Allergies Allergy/AdvReac Type Severity Reaction Status Date / Time latex Allergy Rash/Hives/ Verified 03/27/24 16:56 Swelling Physical Exam Vitals: Vital Signs Temp Pulse Pulse Resp BP Pulse Ox 03/28/24 11:16 70 16 102/64 97 03/28/24 09:38 97.5 F L 64 18 117/74 97 03/28/24 08:00 85 18 122/77 97 03/28/24 06:58 67 16 109/75 95 03/28/24 05:43 60 16 107/69 94 L 03/28/24 04:00 68 16 103/58 95 03/28/24 02:16 60 18 103/62 95 03/28/24 01:00 55 L 18 98/51 94 L 03/27/24 23:00 66 16 100/62 95 03/27/24 22:00 65 16 114/50 95 03/27/24 21:05 63 16 106/68 96 03/27/24 18:26 97.9 F 66 18 121/71 98 03/27/24 17:41 78 18 119/78 03/27/24 17:00 77 22 115/74 97 03/27/24 15:58 81 24 109/77 03/27/24 15:07 73 03/27/24 14:06 97.8 F 110 H 30 H 161/86 99 Intake and Output 03/27/24 03/28/24 03/28/24 22:59 06:59 14:59 Other: Weight 90.718 kg Results CBC & Chem 7: 03/27/24 14:43 03/27/24 14:43 Labs: Abnormal Lab Results - Last 24 Hours (Table) 03/27/24 03/27/24 03/28/24 Range/Units 14:43 14:43 02:55 WBC 10.9 H (3.8-10.6) k/uL Carbon Dioxide 19 L (22-30) mmol/L Glucose 113 H (74-99) mg/dL HDL Cholesterol 27.50 L (40.00-60.00) mg/dL Thrombosis Risk Factor Assmnt - Choose All That Apply Any of the Below Risk Factors Present?: Yes Each Factor Represents 1 point: Age 41-60 years Thrombosis Risk Factor Assessment Total Risk Factor Score: 1 Thrombosis Risk Factor Assessment Level: Low Risk Assessment and Plan Time with Patient: Less than 30
--- NOTE | 2024-03-28 14:20 | P.DS ---
Providers Date of admission: 03/27/24 18:08 Attending physician: Bharath Cope Consults: 03/27/24 18:06 Consult Physician Urgent Consulting Provider: Arpit Cantrell Consult Reason/Comments: chest pain Do you want consulting provider notified?: Yes Primary care physician: Physician Nonstaff Hospital Course: This is a 44 year old female with medical history of asthma, hypertension, iron deficiency anemia and current smoker. Patient was sitting at the table at home developed sharp mid sternal chest pain with radiation to the back and came in to the hospital for evaluation. She had no palpitations, dizziness or lightheadedness. Patient had no shortness of breath. Not a burning like sensation any not associated with foods. Patient was admitted and cardiac evaluation underwent stress echo. Was inadequate study patient had inability. 85% maximum predicted heart rate however at 78% age-predicted heart rate patient had normal EKG and echo response without evidence of inducible ischemia with fair exercise capacity. Patient's echocardiogram reveals an EF of 55 to 60% with mild TR, mild MR and mildly increased left ventricular wall thickness. Patient is not having any chest pain at this time. Advised patient to quit smoking. Troponin level is negative x 3, Lipid panel shows triglycerides of 144, cholesterol of 128, HDL of 27.50, LDL of 28.80. REVIEW OF SYSTEMS: CONSTITUTIONAL: No fever, no malaise, no fatigue. HEENT: No recent visual problems or hearing problems. Denied any sore throat. CARDIOVASCULAR: No chest pain, orthopnea, PND, no palpitations, no syncope. PULMONARY: No shortness of breath, no cough, no hemoptysis. GASTROINTESTINAL: No diarrhea, no nausea, no vomiting, no abdominal pain. NEUROLOGICAL: No headaches, no weakness, no numbness. HEMATOLOGICAL: Denies any bleeding or petechiae. GENITOURINARY: Denies any burning micturition, frequency, or urgency. MUSCULOSKELETAL/RHEUMATOLOGICAL: Denies any joint pain, swelling, or any muscle pain. ENDOCRINE: Denies any polyuria or polydipsia. The rest of the 14-point review of systems is negative. PHYSICAL EXAMINATION: GENERAL: The patient is alert and oriented x3, not in any acute distress. Well developed, well nourished. HEENT: Pupils are round and equally reacting to light. EOMI. No scleral icterus. No conjunctival pallor. Normocephalic, atraumatic. No pharyngeal erythema. No thyromegaly. CARDIOVASCULAR: S1 and S2 present. No murmurs, rubs, or gallops. PULMONARY: Chest is clear to auscultation, no wheezing or crackles. ABDOMEN: Soft, nontender, nondistended, normoactive bowel sounds. No palpable organomegaly. MUSCULOSKELETAL: No joint swelling or deformity. EXTREMITIES: No cyanosis, clubbing, or pedal edema. NEUROLOGICAL: Gross neurological examination did not reveal any focal deficits. SKIN: No rashes. Assessment Acute chest pain, atypical, ACS ruled out. Hypertension in the past. Currently normotensive not on any medications outpatient Hx of asthma Iron deficiency anemia Chronic nicotine use GI prophylaxis Plan Cardiology cleared the patient for discharge negative stress echo Hydrocortisone ointment to the chest wall for the irritation from the electrode pads. Continue all same home medications Follow up cardiology. The impression and plan of care has been dictated by Anastacia Astorga Nurse Practitioner as directed. Dr. Winter MD I have performed a history and physical examination and medical decision making of this patient, discussed the same with the dictator, and agree with the dictators assessment and plan as written, documented as a scribe. Based on total visit time, I have performed more than 50% of this visit. Patient Condition at Discharge: Fair Plan - Discharge Summary New Discharge Prescriptions: New Hydrocortisone Oint [Hydrocortisone 1% Oint] 1 applic TOPICAL TID #1 each Aspirin 81 mg PO DAILY #30 tab Continue methocarbamoL [Robaxin] 1,000 mg PO QID PRN PRN Reason: Muscle Spasm levonorgestreL [Mirena] 1 implant IY [id number] Ondansetron Odt [Zofran ODT] 4 mg PO Q6H PRN PRN Reason: Nausea Ferrous Sulfate [Iron (65 MG Elemental)] 325 mg PO Q2D #30 tab Discharge Medication List Ondansetron Odt [Zofran ODT] 4 mg PO Q6H PRN 03/27/24 [History] levonorgestreL [Mirena] 1 implant IY [id number] 03/27/24 [History] methocarbamoL [Robaxin] 1,000 mg PO QID PRN 03/27/24 [History] Aspirin 81 mg PO DAILY #30 tab 03/28/24 [Rx] Ferrous Sulfate [Iron (65 MG Elemental)] 325 mg PO Q2D #30 tab 03/28/24 [Rx] Hydrocortisone Oint [Hydrocortisone 1% Oint] 1 applic TOPICAL TID #1 each 03/28/24 [Rx] Follow up Appointment(s)/Referral(s): Arpit Cantrell DO [STAFF PHYSICIAN] - 1 Week (cardiology as needed. ) Lauren Chao MD [STAFF PHYSICIAN] - 1-2 Days (PCP.) Nonstaff,Physician [Primary Care Provider] - 1-2 days Discharge/Stand Alone Forms: Area PCPs Discharge Disposition: HOME SELF-CARE
[2024-03-28 15:11] VITALS: BP 121/77; PULSE 69
[2024-03-28] MEDS: HYDROCORTISONE 1% OINT 28.35 GM TUBE TOPICAL SCH (15:11)
== END 2024-03-28 15:13 | disposition home or self-care (01) ==
LOC: EC 14:05 → 6NMEDSUR 18:08
PROVIDERS: ADMIT Hospitalist; ATTEND Hospitalist
DX: R07.89 Other chest pain (principal); M54.9 Dorsalgia, unspecified; R20.0 Anesthesia of skin; J45.909 Unspecified asthma, uncomplicated; D50.9 Iron deficiency anemia, unspecified; E66.9 Obesity, unspecified; Z68.32 Body mass index [BMI] 32.0-32.9, adult; F17.210 Nicotine dependence, cigarettes, uncomplicated; Z79.899 Other long term (current) drug therapy; Z91.040 Latex allergy status; Z86.79 Personal history of other diseases of the circulatory system; Z96.0 Presence of urogenital implants; Z82.49 Family history of ischemic heart disease and other diseases of the circulatory system
CPT/HCPCS: 36415; 93005; 93306; 93351; 85379; 80061; 80053; 83605; 83735; 84484; 85025; 85610; 85730; 71046; 71275; 74174; G0378 ×2; J2270; J1170; Q9967; 96361; 96374; 96375; 99285; 99291